=== PATIENT | female | born 1960 | race Caucasian/White ===

== ENCOUNTER 2017-04-17 14:31 | Emergency (ER) | payer OTHER ==
[~2017-04-17] VITALS: Ht 157.5 cm; Wt 54.4 kg
--- NOTE | ~2017-04-17 | EKG ---
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: [facility] : 1960 Requested By: Astrid Montero Order Number: [id number] MD: Stanislav Portillo Measurements Intervals [place] Rate: 95 P: 82 UT: 203 QRS: 18 QRSD: 96 T: 102 QT: 403 QTc: 507 Interpretive Statements Sinus rhythm Borderline prolonged UT interval Borderline repolarization abnormality Minimal ST elevation, anterior leads No previous ECG available for comparison Electronically Signed On 04-17-2017 21:28:36 EDUCATION AND TRAINING COORDINATOR by Stanislav Portillo [email or web address] <ELECTRONICALLY SIGNED> By: Stanislav Portillo MD 04/17/17 2128 1432 143 Stanislav Portillo MD /KIMBER
--- NOTE | ~2017-04-17 | EKG ---
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[employer] : 1960 Requested By: Astrid Montero Order Number: [id number] MD: Stanislav Portillo Measurements Intervals [place] Rate: 105 P: 74 MA: 186 QRS: 17 QRSD: 106 T: 99 QT: 369 QTc: 488 Interpretive Statements Sinus tachycardia Nonspecific T abnormalities, lateral leads Borderline prolonged QT interval Compared to ECG 04/17/2017 14:32:48 T-wave abnormality now present Sinus rhythm no longer present ST (T wave) deviation no longer present Electronically Signed On 04-18-2017 20:57:35 SLACK LINE YARDER by Stanislav Portillo [email or web address] <ELECTRONICALLY SIGNED> By: Stanislav Portillo MD 04/18/17 2057 10 10 Stanislav Portillo MD /EPI
[2017-04-17 14:46] LABS: HEMATOCRIT 36.3 % (37.0-47.0); HEMOGLOBIN 11.9 gm/dL (12.0-15.0); MANUAL DIFF YES; MCH 26.9 pg (26.0-34.0); MCHC 32.8 g/dL (28.0-37.0); MCV 82.2 fL (80.0-100.0); PLATELET COUNT 154 thou/uL (150-400); RBC 4.42 mil/uL (4.20-5.00); RDW 17.3 % (10.5-14.5); WBC 6.7 thou/uL (4.0-11.0)
[2017-04-17 14:47] LABS: POC CA IONIZED 5.3 mg/dL (4.5-5.3); POC CREATININE 4.1 mg/dL (0.6-1.3); POC HEMOGLOBIN 13.3 g/dL (12.0-15.0); POC POTASSIUM 3.9 mmol/L (3.5-5.1)
[2017-04-17 14:51] LABS: CALCIUM 10.8 mg/dL (8.5-10.1); CREATININE 4.1 mg/dL (0.6-1.0); POTASSIUM 3.8 mmol/L (3.5-5.1)
[2017-04-17 15:00] LABS: TROPONIN-I 0.35 ng/mL (<0.06)
[2017-04-17 15:14] LABS: ANISOCYTOSIS 1+; TOTAL CELL COUNT 100
[2017-04-17] MEDS ORDERED: ATORVASTATIN CA40 MG PO (15:48)
[2017-04-17] MEDS ORDERED: ASPIR 8181 MG PO (15:48)
[2017-04-17] MEDS ORDERED: EPOGEN10000 UNIT SUBQ (15:49)
[2017-04-17] MEDS ORDERED: SYNTHROID100 MCG PO (15:50)
[2017-04-17] MEDS ORDERED: HEPARIN 5,5000 UNIT1 SUBQ (15:50)
[2017-04-17] MEDS ORDERED: REMERON15 MG PO (15:51)
[2017-04-17] MEDS ORDERED: MIRALAX17 GM PO (15:51)
[2017-04-17] MEDS ORDERED: HYDROCODON-ACE1 EAC7 PO (15:51)
[2017-04-17] MEDS ORDERED: TYLENOL325 MG PO (15:52)
[2017-04-17] MEDS ORDERED: DEMADEX20 MG PO (15:52)
[2017-04-17] MEDS ORDERED: JUVEN PACKET1 EACH PO (15:53)
[2017-04-17] MEDS ORDERED: SENSIPAR60 MG PO (15:53)
[2017-04-17] MEDS ORDERED: CARVEDILOL12.5 MG PO (15:54)
[2017-04-17] MEDS ORDERED: LISINOPRIL20 MG PO (15:54)
[2017-04-17] MEDS ORDERED: RENAL-VITE TAB0.8 MG PO (15:55)
[2017-04-17] MEDS ORDERED: RENVELA800 MG PO (15:55)
[2017-04-17] MEDS ORDERED: VOLTAREN GEL 1100 G2 TOP (15:55)
[2017-04-17] MEDS ORDERED: NORVASC2.5 MG PO (15:56)
[2017-04-17 17:37] VITALS: BP 155/85
== END 2017-04-17 18:01 | disposition home or self-care (01) ==
LOC: ER 14:31
PROVIDERS: Emergency Medicine
DX: R07.89 Other chest pain (principal); R11.10 Vomiting, unspecified; I10 Essential (primary) hypertension; E11.9 Type 2 diabetes mellitus without complications; E03.9 Hypothyroidism, unspecified; E21.3 Hyperparathyroidism, unspecified; E78.00 Pure hypercholesterolemia, unspecified; G62.9 Polyneuropathy, unspecified

== ENCOUNTER 2017-11-24 05:38 | Inpatient (IN) | payer OTHER ==
[~2017-11-24] VITALS: Ht 157.5 cm; Wt 52.2 kg
--- NOTE | ~2017-11-24 | HC ---
[facility] [place] [address] CONSULTATION Name: ROMINA ASENCIO Room #: 456-P [facility] IN M.R.#: [id number] Admission: 11/25/17 Attend Phys: Ady Le MD Discharge: 11/30/17 Date of : 58 Report #: [id number] THIS REPORT FOR: //name// CC: Ady King [facility] DATE OF SERVICE: 11/25/2017 NEPHROLOGY CONSULTATION ATTENDING PHYSICIAN: Dr. Le. REASON FOR CONSULTATION: End-stage renal disease. HISTORY OF PRESENT ILLNESS: The patient is extremely well known to our service. A 57-year-old chronic dialysis patient, on dialysis for several years with chronic diabetes, presented for cholecystectomy after a bout of cholecystitis recently. Cholecystectomy was performed. She did well and she is seen here postoperatively. PAST MEDICAL HISTORY: Longstanding diabetes mellitus complicated by some peripheral neuropathy, failure to thrive, progressive weakness, congestive heart failure, orthostatic hypotension, recent bout of colitis. She has cardiomyopathy as well. SOCIAL HISTORY: Lives in extended care facility. No cigarettes. HOME MEDICATIONS: Include aspirin 81 mg daily, atorvastatin 40 mg daily, Procrit in the dialysis unit, levothyroxine 100 mcg daily, Remeron at bedtime, torsemide 20 mg daily, carvedilol 12.5 mg b.i.d., amlodipine 5 mg daily, metoclopramide 10 mg daily. REVIEW OF SYSTEMS: GENERAL: She is feeling reasonably well. EYES: Her vision is okay. ENT: Hearing okay, swallows okay. No mouth sores or ulcers. ENDOCRINE: Positive for diabetes and thyroid disease. RESPIRATORY: No shortness of breath, pleuritic pain, cough, or hemoptysis. CARDIAC: No chest pain, angina or swelling in the legs. GASTROINTESTINAL: No nausea, vomiting, diarrhea. GENITOURINARY: Very little urine output. NEUROLOGIC: Generalized weakness. MUSCULOSKELETAL: No arthritis. PHYSICAL EXAMINATION: GENERAL: Chronically ill-appearing patient, talks softly. [facility] [address] [place] [address] [facility] Room #: [address] [place] [address] IN M.R.#: [id number] Admission: 11/25/17 Attend Phys: Ady Le MD Discharge: 11/30/17 Date of : 58 Report #: [id number] SKIN: Unremarkable. SKELETAL: Well-developed, well-nourished. She is thin. HEENT: Extraocular movements are full. Vision intact. Mucous membranes are moist. NECK: Veins are flat. CHEST: Clear to auscultation. HEART: Regular. ABDOMEN: Soft and nontender except mild tenderness in the mid epigastrium. EXTREMITIES: Show no peripheral edema. NEUROLOGIC: Shows numbness in the feet. LABORATORY DATA: Potassium only 3.2, creatinine only 1.8, BUN is 11, hemoglobin is 13.6. ASSESSMENT AND PLAN: 1. End-stage renal disease, on dialysis for some time. We will continue with dialysis treatment today. 2. Status post cholecystectomy, doing well. 3. Longstanding diabetes mellitus. 4. Chronic debility. 5. Cardiomyopathy. <ELECTRONICALLY SIGNED> By: Raul Dale MD 12/02/17 112 112 18 Raul Dale MD /nt
--- NOTE | ~2017-11-24 | PATH ---
[facility] [address] [place] [address] PATHOLOGY RPT PROCEDURE Name: MERLENE ASENCIO Room #: 456-P ADM IN M.R.#: [id number] Admission: 11/25/17 Date of : 58 Discharge: Report #: [id number] Path Case #: [id number] [facility] Accession Number: [id number] . 01 Material submitted: . GALLBLADDER . 01 Clinical history: . Cholelithiasis, cholecystitis . 02 Diagnosis: "Gallbladder", cholecystectomy: - Chronic cholecystitis. - Cholelithiasis. (CLW:db; 11/28/2017) LBQ/11/28/2017 . 02 Electronically signed: . Bhakti Whitt MD, Pathologist NPI- [id number] . 01 Gross description: . Received in formalin labeled "Merlene Asencio, gallbladder," is a previously opened gallbladder measuring 6.9 x 6.2 x 0.8 cm in greatest dimensions. The serosal surface is smooth to shaggy and dark green in appearance. The mucosa is velvety and dark green in appearance, measuring 0.1 cm thick. No polyps or nodules are noted grossly. A viscous, dark green/black sludge is adherent to the mucosal surface containing particles of dark brown, granular material measuring up to 0.1 cm in maximum dimension. Careful inspection of the specimen and filtration of the specimen container contents reveal no further calculi. The specimen is submitted representatively in cassette A1, to include the infundibulum, body and fundus. (DAC; 11/25/2017) XDC/XDC . 02 Pathologist provided ICD-10: K80.10 . 02 CPT . 122464 Performed at: [address] [id number] MD Hansel Laguerre MD Phone: [phone] Performed at: 02 [facility] [address] [place] [address] PATHOLOGY RPT PROCEDURE Name: LUIS MSALMAMERLENE Room #: 456-P [facility] IN M.R.#: [id number] Admission: 11/25/17 Date of : 58 Discharge: Report #: [id number] Path Case #: [id number] [address] [place] [id number] MD Makayla Traylor MD Phone: [phone]
--- NOTE | ~2017-11-24 | O ---
[facility] [place] [address] OPERATIVE REPORT Name: ROMINA ASENCIO Room #: 456-P ADM IN M.R.#: [id number] Admission: 11/25/17 Attend Phys: Ady Le MD Discharge: Date of : 58 Report #: [id number] THIS REPORT FOR: //name// CC: Ady Mcpherson MD DATE OF SERVICE: 11/24/2017 PREOPERATIVE DIAGNOSES: Cholecystitis with cholelithiasis, large sludge ball in the gallbladder. POSTOPERATIVE DIAGNOSES: Cholecystitis with cholelithiasis, large sludge ball in the gallbladder. PROCEDURE: Laparoscopic cholecystectomy with cholangiogram. SURGEON: Ady Le MD ANESTHESIA: General anesthesia. BLOOD LOSS: 5 mL. FINDINGS: The cystic duct was full of sludge and small stones. Common bile duct appeared normal on operative cholangiogram. The junction of the gallbladder cystic duct was tortuous, edema identified in the gallbladder wall. DESCRIPTION OF PROCEDURE: With the patient under general anesthesia, abdomen was prepped and draped in sterile fashion. A 0.25% Marcaine was used to anesthetize the skin. A curvilinear incision was made infraumbilically about 2 cm. Fascia was then identified, grasped with hemostat. Fascia was then opened between the hemostat and then an 0 Vicryl suture was placed on the fascia edges for retraction. Veress needle was then placed through the posterior sheath and peritoneum. Abdominal cavity was insufflated with CO2 without difficulty. After creating pneumoperitoneum pressure of 15, an 11 mm trocar was placed through the posterior sheath and the peritoneum. No harm to the underlying tissue was identified. The patient's stomach was moderately distended. OG was placed by anesthesia, which decompressed it well. The patient was placed in reverse Trendelenburg position right side up. Two 5 mm trocars were placed to the right upper quadrant and a 5 mm trocar was placed in the right epigastrium. The gallbladder was pretty distended. The peritoneum over the triangle of Calot was dissected free. The lateral part of the gallbladder neck was freed. It became the common duct was not able to be visualized. The cystic duct had multiple scar bands across it and causing the cystic duct to be dilated at portions. Also, where the gallbladder joined the cystic duct is tortuous and folded on itself. The cystic duct was eventually able to be isolated. The [address] [address] OPERATIVE REPORT Name: ROMINA ASENCIO Room #: 456-P [facility] IN M.R.#: [id number] Admission: 11/25/17 Attend Phys: Ady Le MD Discharge: Date of : 58 Report #: [id number] cystic artery was also found. Clip was placed in the junction of the cystic duct to the gallbladder. The cystic duct was open. There is dense sludgy material that came out of the cystic duct. This also contained tiny stones. This was milked out pretty thoroughly. Irrigation was performed. Finally, cholangiogram catheter was placed. Initial run, I was not able to inject because the tip of the catheter was stuck up against the wall of the cystic duct. I then replaced it and was able to get it down into the more proximal part of the cystic duct. A clip was placed. Now, the contrast injection was easily performed. The patient was flattened out. The common bile duct filled out well. The cystic duct is tortuous. Common bile duct did not have any filling defect. Free spill bleach of the contrast into the duodenum identified. Common bile duct is not harmed. After the cholangiogram, the cholangiogram catheter was then removed. The cystic duct was then clipped x 2 proximally. The cystic artery was then identified. The posterior branch actually was easily deceived and clipped first and then the anterior branch was clipped and divided. Both arteries were clipped x 2 proximally, 1 distally and then divided. Gallbladder was then freed from the liver bed using cautery. Hemostasis obtained. Once the gallbladder was free, it was placed in a specimen bag and retrieved through the infraumbilical port. Gallbladder was opened off the field contained a large amount of sludge, which is quite dense. This is consistent with what was seen on her ultrasound and not a mass. No mass identified in the gallbladder. There are several stones in the gallbladder. Liver bed was checked and hemostasis was excellent. Clips were intact. No bleeding identified. Irrigation fluid was aspirated out. Trocars then removed under visualization. CO2 was evacuated. The patient tolerated the procedure well. The fascia defect infraumbilically was closed with [id number] 0 Vicryl x 2. The skin was then irrigated, closed with 5-0 PDS. Steri-Strip, Band-Aids applied. The patient was awakened and taken to the recovery room. <ELECTRONICALLY SIGNED> By: Ady Le MD 11/27/17 1059 21 18 Ady Le MD /nt
--- NOTE | ~2017-11-24 | H ---
[facility] [place] [address] HISTORY AND PHYSICAL Name: ROMINA ASENCIO Room #: 456-P ADM IN M.R.#: [id number] Admission: 11/25/17 Attend Phys: Ady Le MD Discharge: Date of : 58 Report #: [id number] THIS REPORT FOR: //name// CC: Ady Mcpherson MD DATE OF SERVICE: 11/24/2017 HISTORY OF PRESENT ILLNESS: The patient is a 57-year-old who resides at [facility] and is here for gallbladder surgery. The patient for the last several months has been having abdominal pain. She initially did not tell anybody when they started. She has been complaining of upper pain going to her back, which seems to be in between meals. She does state that food does make her sick. The patient has associated nausea, bloating and increased gas. No diarrhea. She has problem with constipation. The patient had a CT and ultrasound at the end of October and distended gallbladder with gallstones were identified. Ultrasound showed a large amount of echogenic material, which is consistent with a sludge ball. The patient is here for laparoscopic cholecystectomy. PAST MEDICAL HISTORY: The patient has end-stage kidney disease and is on dialysis; history of hypertension; diabetes; chronic heart disease, which is stable; hypothyroid; polyneuropathy; history of falling; hyperlipidemia; generalized muscle weakness. MEDICATIONS: Reglan, Remeron, Claritin, Ventolin, Zofran, hydrocodone, amlodipine, carvedilol, torsemide, aspirin, Levemir. ALLERGIES: The patient reports no allergies. PAST SURGICAL HISTORY: No past surgical history in the abdomen. FAMILY HISTORY: Noncontributory. REVIEW OF SYSTEMS: GENERAL: The patient is a chronically ill and disabled from chronic renal disease. She gets dialysis Tuesday, Tuesday and Tuesday. On exam, she is a fair historian. She does look thin. The patient is alert and oriented. HEENT: Pupils react to light. Extraocular muscles are intact. Oropharynx clear. NECK: Soft and supple, no masses. LUNGS: Clear to auscultation. HEART: Regular rate and rhythm. No murmur or gallop. ABDOMEN: She does have tenderness in right upper quadrant subcostally. I do not feel any mass. No abdominal incision identified. No guarding or rigidity. [address] [address] HISTORY AND PHYSICAL Name: ROMINA ASENCIO Room #: 456-P [facility] IN M.R.#: [id number] Admission: 11/25/17 Attend Phys: Ady Le MD Discharge: Date of : 58 Report #: [id number] The patient does not appear to be jaundiced. EXTREMITIES: No cyanosis, clubbing, or edema. IMPRESSION: The patient with abdominal pain and gallstones and a large amount of gallbladder sludge. The patient's symptoms are consistent with gallbladder disease. She is recommended to have gallbladder removed. The patient does have multiple medical problems which are all stable. The patient is recommended to proceed with laparoscopic cholecystectomy. This will be scheduled today in between her dialysis Tuesday and Tuesday. <ELECTRONICALLY SIGNED> By: Ady Le MD 11/27/17 1059 0943 1002 Ady Le MD /nt
[~2017-11-24 05:38] MED LIST: ASPIR 8181 MG PO; ATORVASTATIN CA40 MG PO; BETADINE1 EACH TOP; CARVEDILOL12.5 MG PO; CIPRO500 MG PO; CLARITIN10 MG PO; DEMADEX20 MG PO; EPOGEN10000 UNIT SUBQ; FLAGYL500 MG PO; HEPARIN 5,5000 UNIT1 SUBQ; HYDROCODON-ACE1 EAC7 PO; JUVEN PACKET1 EACH PO; LEVEMIR SUBQ; LISINOPRIL20 MG PO; MIRALAX17 GM PO; NEPRO CARB STE237 ML PO; NITROGLYCERIN0.4 MG SUBLING; NORCO 5-325 TA1 EACH PO; NORVASC2.5 MG PO; ONDANSETRON HCL4 M2 PO; REGLAN 10 MG TA10 MG PO; REMERON 30 MG T30 M1 PO; REMERON15 MG PO; RENAL-VITE TAB0.8 MG PO; RENVELA800 MG PO; SENNA-DOCUSATE1 EAC1 PO; SENSIPAR60 MG PO; SYNTHROID100 MC1 PO; SYNTHROID100 MCG PO; TYLENOL325 MG PO; VENTOLIN HFA 1818 GM INH; VOLTAREN GEL 1100 G2 TOP
[2017-11-24 13:27] LABS: HEMATOCRIT 41.6 % (37.0-47.0); HEMOGLOBIN 13.6 gm/dL (12.0-15.0); MCH 24.9 pg (26.0-34.0); MCHC 32.7 g/dL (28.0-37.0); MCV 76.2 fL (80.0-100.0); RBC 5.45 mil/uL (4.20-5.00); RDW 21.1 % (10.5-14.5); WBC 5.3 thou/uL (4.0-11.0)
[2017-11-24 13:36] LABS: CALCIUM 9.4 mg/dL (8.5-10.1); CREATININE 1.8 mg/dL (0.6-1.0); POTASSIUM 3.2 mmol/L (3.5-5.1)
[2017-11-24 13:44] LABS: ALBUMIN 2.3 g/dL (3.4-5.0); DIRECT BILIRUBIN 0.3 mg/dL (<0.1-0.3); TOTAL BILIRUBIN 0.5 mg/dL (<0.1-1.0); TOTAL PROTEIN 7.4 g/dL (6.4-8.2)
[2017-11-24 14:11] VITALS: BP 191/107
[2017-11-24 19:19] VITALS: BP 164/86
[2017-11-24 20:20] VITALS: BP 142/75
[2017-11-24 21:00] VITALS: BP 104/91
[2017-11-24 22:00] VITALS: BP 161/87
[2017-11-25 00:28] VITALS: BP 167/86
[2017-11-25 03:28] VITALS: BP 149/78
[2017-11-25 07:55] VITALS: BP 150/89
[2017-11-25 18:40] VITALS: BP 143/64
[2017-11-25 19:26] VITALS: BP 135/64
[2017-11-26 06:05] VITALS: BP 183/858
[2017-11-26 07:20] VITALS: BP 142/85
[2017-11-26 16:53] VITALS: BP 129/67
[2017-11-26 19:01] VITALS: BP 139/70
[2017-11-27 03:07] VITALS: BP 159/85
[2017-11-27 08:00] VITALS: BP 153/85
[2017-11-27 16:18] VITALS: BP 150/85
[2017-11-27 20:00] VITALS: BP 136/82
[2017-11-28 04:00] VITALS: BP 132/85
[2017-11-28 05:14] LABS: HEMATOCRIT 37.4 % (37.0-47.0); HEMOGLOBIN 12.1 gm/dL (12.0-15.0); MCH 24.9 pg (26.0-34.0); MCHC 32.3 g/dL (28.0-37.0); MCV 77.1 fL (80.0-100.0); RBC 4.85 mil/uL (4.20-5.00); RDW 21.5 % (10.5-14.5); WBC 13.6 thou/uL (4.0-11.0)
[2017-11-28 05:36] LABS: ALBUMIN 1.6 g/dL (3.4-5.0); CALCIUM 9.4 mg/dL (8.5-10.1); CREATININE 2.6 mg/dL (0.6-1.0); PHOSPHORUS 1.6 mg/dL (2.5-4.9); POTASSIUM 4.6 mmol/L (3.5-5.1)
[2017-11-28 08:00] VITALS: BP 176/93
[2017-11-28 15:52] VITALS: BP 139/76
[2017-11-28 20:00] VITALS: BP 133/71
[2017-11-29 03:19] VITALS: BP 138/78
[2017-11-29 05:24] LABS: HEMATOCRIT 36.4 % (37.0-47.0); MCH 25.1 pg (26.0-34.0); MCHC 32.9 g/dL (28.0-37.0); MCV 76.2 fL (80.0-100.0); RBC 4.77 mil/uL (4.20-5.00); RDW 21.4 % (10.5-14.5); WBC 15.2 thou/uL (4.0-11.0)
[2017-11-29 05:45] LABS: ALBUMIN 1.7 g/dL (3.4-5.0); CALCIUM 9.2 mg/dL (8.5-10.1); PHOSPHORUS 2.7 mg/dL (2.5-4.9); POTASSIUM 3.4 mmol/L (3.5-5.1)
[2017-11-29 05:48] LABS: CREATININE 1.5 mg/dL (0.6-1.0)
[2017-11-29 07:45] VITALS: BP 146/88
[2017-11-29 16:01] VITALS: BP 157/91
[2017-11-29 19:18] VITALS: BP 156/81
[2017-11-30 03:11] VITALS: BP 150/74
[2017-11-30 08:00] VITALS: BP 162/87
[2017-11-30] MEDS ORDERED: KEFLEX500 M1 PO (15:33)
[2017-11-30] MEDS ORDERED: NOVOLOG100 UNIT/1 SUBQ (15:35)
[2017-11-30 16:00] VITALS: BP 144/76
== END 2017-11-30 17:32 | DRG 417 ==
LOC: TBA 05:38 → OR 05:38 → 4W 05:38 → OR 09:49 → 4W 17:49 → OR 11-25 15:33 → 4W 11-30 17:32
PROVIDERS: Internal Medicine Nephrology; Surgery
PROC: 0FT44ZZ Resection of Gallbladder, Percutaneous Endoscopic Approach (ICD-10-PCS; principal; 2017-11-25)
PROC: BF141ZZ Fluoroscopy of Gallbladder, Bile Ducts and Pancreatic Ducts using Low Osmolar Contrast (ICD-10-PCS; principal; 2017-11-25)
DX: K80.10 Calculus of gallbladder with chronic cholecystitis without obstruction (principal); N18.6 End stage renal disease; K56.7 Ileus, unspecified; I13.2 Hypertensive heart and chronic kidney disease with heart failure and with stage 5 chronic kidney disease, or end stage renal disease; I42.9 Cardiomyopathy, unspecified; E83.39 Other disorders of phosphorus metabolism; K59.00 Constipation, unspecified; I50.9 Heart failure, unspecified; E21.3 Hyperparathyroidism, unspecified; F32.9 Major depressive disorder, single episode, unspecified; F41.9 Anxiety disorder, unspecified; E11.22 Type 2 diabetes mellitus with diabetic chronic kidney disease; E11.42 Type 2 diabetes mellitus with diabetic polyneuropathy; E03.9 Hypothyroidism, unspecified; E78.5 Hyperlipidemia, unspecified; Z99.2 Dependence on renal dialysis; Z91.81 History of falling; Z79.4 Long term (current) use of insulin; Z79.82 Long term (current) use of aspirin; Z79.899 Other long term (current) drug therapy
CPT/HCPCS: 10047; 32100; 50010; 50101; 50411; 50555; 50558; 51489; 51687; 52168; 53307; 53310; 55245; 55317; 56462; 56525; 56526; 56970; 62110; 62900; 70005

== ENCOUNTER 2018-02-15 16:48 | Inpatient (IN) | payer OTHER ==
[~2018-02-15] VITALS: Ht 157.5 cm; Wt 45.3 kg
--- NOTE | ~2018-02-15 | HC ---
[facility] [place] [address] CONSULTATION Name: ROMINA ASENCIO Room #: 426-P ADM IN M.R.#: [id number] Admission: 02/15/18 Attend Phys: Raul Dale MD Discharge: Date of : 58 Report #: [id number] THIS REPORT FOR: //name// CC: Raul Mcpherson REASON FOR CONSULTATION: End-stage renal disease. REASON FOR PRESENTATION: Constipation. HISTORY OF PRESENT ILLNESS: This is a 57-year-old with past medical history of end-stage renal disease, severe malnutrition. She is known to have coronary artery disease and all complications related to her end-stage renal disease. She dialyzes every Tuesday, Tuesday and Tuesday. She presented to the Emergency Room, reporting that she had constipation for a few weeks. This was associated with mild abdominal pain. No diarrhea. No fever or chills. No shortness of breath or chest pain. She does report lower extremity edema. No previous similar episode. Chest CT and abdominal and pelvis CT reveals severe fecal impaction. I am being consulted to manage her end-stage renal disease related issues. PAST MEDICAL HISTORY: Extensive and includes the followin. End-stage renal disease. 2. Coronary artery disease. 3. Hyperparathyroidism. 4. Anemia. 5. Hyperlipidemia. 6. Peptic ulcer disease. 7. Hypothyroidism. 8. Diabetes mellitus. 9. Hypertension. 10. Cardiomyopathy. 11. Right IJ tunneled catheter. 12. Post-laparoscopic cholecystectomy. 13. EGD. SOCIAL HISTORY: The patient resides at the [facility]. No reported drug or alcohol abuse. FAMILY HISTORY: Significant for hypertension and diabetes mellitus. MEDICATIONS: Atorvastatin, clonidine, carvedilol, amlodipine, aspirin, senna, levothyroxine. REVIEW OF SYSTEMS: GENERAL: No fever or chills. CARDIOVASCULAR: No chest pain or palpitation. [facility] [address] [place] [address] CONSULTATION Name: ROMINA ASENCIO Room #: 426-P [facility] IN [facility].#: [id number] Admission: 02/15/18 Attend Phys: Raul Dale MD Discharge: Date of : 58 Report #: [id number] PULMONARY: No cough or hemoptysis. GASTROINTESTINAL: As per the history of present illness. GENITOURINARY: Anuric. MUSCULOSKELETAL: Bilateral lower extremity edema. PHYSICAL EXAMINATION: GENERAL: Alert, oriented. VITAL SIGNS: Blood pressure is 102/62, temperature 36.8. HEAD AND NECK: No jugular venous distention. CHEST: Decreased air entry bilaterally. CARDIOVASCULAR: No rub detected. ABDOMEN: Soft, diffuse tenderness. No guarding or rigidity. LOWER EXTREMITIES: +2 edema. LABORATORY DATA: Reviewed. White blood cell count 8.5. Sodium 136, potassium is 3.2, creatinine is 1.5. CT abdomen and pelvis reviewed and this showed massive fecal impaction with possible left ovarian adnexal mass. ASSESSMENT, IMPRESSION AND PLAN: 1. End-stage renal disease. 2. Severe fecal impaction. 3. Hypokalemia. 4. Fluid overload. 5. Hypertension. 6. Diabetes mellitus. 7. Hypothyroidism. 8. Coronary artery disease. 9. We will arrange for the patient to have her usual dialysis every Tuesday, Tuesday and Tuesday. Next treatment will be tomorrow. 10. Replace potassium. 11. Resume her blood pressure medication. 12. Resume her diabetic medications. 13. Resume her thyroid medications. 14. We will defer the management of her fecal impaction to the admitting team. <ELECTRONICALLY SIGNED> By: Stefanie Baker MD 02/17/18 0808 0826 1101 Stefanie Baker MD /nt
--- NOTE | ~2018-02-15 | EKG ---
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1960 Requested By: Fernando Mcpherson Order Number: [id number] MD: Stanislav Portillo Measurements Intervals [place] Rate: 110 P: 71 [place]: 152 QRS: 29 QRSD: 105 T: 104 QT: 359 QTc: 486 Interpretive Statements Sinus tachycardia Low voltage, extremity leads RSR' in V1 or V2, probably normal variant Nonspecific T abnormalities, lateral leads Baseline wander in lead(s) V1,V6 Electronically Signed On 02-27-2018 16:59:50 CDT by Stanislav Portillo [email or web address] <ELECTRONICALLY SIGNED> By: Stanislav Portillo MD 02/27/18 1659 0745 0745 Stanislav Portillo MD /EPI
--- NOTE | ~2018-02-15 | 2DMMODE ---
[place] [address] [facility] [place] [address] 2 D/M-MODE ECHOCARDIOGRAM Name: ROMINA ASENCIO Room #: 426-P ADM IN M.R.#: [id number] Admission: 02/15/18 Attend Phys: Raul Dale MD Discharge: Date of : 58 Date of Service: 02/20/18 1113 Report #: [id number] THIS REPORT FOR: //name// APPROVED REPORT Study performed: 02/20/2018 10:18:42 EXAM: Comprehensive 2D, Doppler, and color-flow Echocardiogram Patient Location: Bedside Room #: [facility] Status: routine BSA: 1.42 HR: 99 bpm BP: 78/56 mmHg Other Information Study Quality: Adequate/Technically Difficult Technically limited study due to inability to position patient, uncooperative patient. Indications Hypotension Diabetes CAD 2D Dimensions RVDd: 22.59 mm IVSd: 12.06 (7-11mm) LVOT Diam: 20.24 (18-24mm) LVDd: 25.38 mm PWd: 12.78 (7-11mm) LVDs: 18.35 (25-40mm) Aortic Root: 25.12 mm IVC: 14.00 mm Volumes Left Atrial Volume (Systole) Single Plane 4CH: 23.79 mL Single Plane 2CH: 15.30 mL LA ESV Index: 15.00 mL/m2 Aortic Valve AoV Peak Favio.: 1.40 m/s AO Peak Gr.: 7.87 mmHg LVOT Max P.58 mmHg LVOT Max V: 1.28 m/s SABINA Vmax: 2.94 cm2 Mitral Valve [facility] [address] [place] [address] 2 D/M-MODE ECHOCARDIOGRAM Name: ROMINA ASENCIO Room #: 426-P ADM IN M.R.#: [id number] Admission: 02/15/18 Attend Phys: Raul Dale MD Discharge: Date of : 58 Date of Service: 02/20/18 1113 Report #: [id number] E/A Ratio: 0.9 MV Decel. Time: 186.49 ms MV E Max Favio.: 0.74 m/s MV A Favio.: 0.84 m/s MV PHT: 54.08 ms IVRT: 69.20 ms Pulmonary Valve PV Peak Favio.: 0.92 m/s PV Peak Gr.: 3.37 mmHg Tricuspid Valve RAP Estimate: 5.00 mmHg Left Ventricle The left ventricle is normal size. Mild concentric left ventricular hypertrophy. The left ventricular systolic function is normal. The left ventricular ejection fraction is within the normal range. LVEF is 60-65%. Transmitral Doppler flow pattern suggests impaired LV relaxation. Right Ventricle The right ventricle is normal size. The right ventricular systolic function is normal. Atria The left atrium size is normal. The right atrium size is normal. Aortic Valve The aortic valve is normal in structure. No aortic regurgitation is present. There is no aortic valvular stenosis. Mitral Valve The mitral valve is normal in structure. There is no mitral valve regurgitation noted. No evidence of mitral valve stenosis. Tricuspid Valve The tricuspid valve is normal in structure. There is no tricuspid valve regurgitation noted. Unable to assess PA pressure. Pulmonic Valve Pulmonic valve is not well visualized. Great Vessels The aortic root is normal in size. IVC is normal in size and collapses >50% with inspiration. [facility] [id number] [place] [address] 2 D/M-MODE ECHOCARDIOGRAM Name: ROMINA ASENCIO Room #: 426-P ADM IN M.R.#: [id number] Admission: 02/15/18 Attend Phys: Raul Dale MD Discharge: Date of : 58 Date of Service: 02/20/18 1113 Report #: [id number] Pericardium There is no pericardial effusion. <Conclusion> The left ventricle is normal size. Mild concentric left ventricular hypertrophy. The left ventricular systolic function is normal. Transmitral Doppler flow pattern suggests impaired LV relaxation. The right ventricle is normal size. The left atrium size is normal. There is no aortic valvular stenosis. There is no mitral valve regurgitation noted. There is no tricuspid valve regurgitation noted. <ELECTRONICALLY SIGNED> By: Rajat Velázquez MD 02/20/18 1113 1113 111 Rajat Velázquez MD /INF
--- NOTE | ~2018-02-15 | HC ---
[facility] [place] [address] CONSULTATION Name: ROMINA ASENCIO Room #: 426-P ADM IN M.R.#: [id number] Admission: 02/15/18 Attend Phys: Raul Dale MD Discharge: Date of : 58 Report #: [id number] THIS REPORT FOR: //name// CC: [facility] DATE OF SERVICE: 02/16/2018 CHIEF COMPLAINT: Sacral ulceration. HISTORY OF PRESENT ILLNESS: This is a 57-year-old white female patient with a history of nausea, vomiting, diarrhea and lower back pain. She was admitted to the hospital for further evaluation and treatment. She has chronic renal failure requiring dialysis. She makes eye contact, will not answer any questions at the bedside. She was noted to have a sacral ulceration. I have been asked to see her with regard to care of her sacral ulceration. PAST MEDICAL HISTORY: Positive for history of end-stage renal disease, requiring dialysis, hypertension, diabetes, coronary artery disease, hypothyroidism, hyperparathyroidism, dyslipidemia, peptic ulcers, polyneuropathy, muscle weakness, congestive heart failure, cardiomyopathy, chronic constipation, hepatitis C. MEDICATIONS: Include omeprazole, aspirin, MiraLax, Tylenol, Coreg, Norvasc, Zofran, Synthroid, Remeron, Claritin, Ventolin, Lipitor, Demadex, Nephrocaps, metoclopramide, Benoit, Epogen, renal vitamins, clonidine, Marinol. ALLERGIES: None. SOCIAL HISTORY: Negative for alcohol or tobacco use. FAMILY HISTORY: Unknown. REVIEW OF SYSTEMS: Unable to be obtained. The patient makes eye contact, but will not answer any questions. PHYSICAL EXAMINATION: VITAL SIGNS: At this time include pulse 88, respiratory rate 16, blood pressure of 84/51, temperature 98.1. GENERAL: This is a chronically ill-appearing, almost cachectic-appearing female patient who appears to be in minimal to no distress. HEENT: Head normocephalic. Nose and throat are clear. She has abnormal facial hair growth in a male pattern. NECK: Supple. LUNGS: Diminished. HEART: Regular rhythm. [facility] [address] [address] CONSULTATION Name: SALMA ASENCIOTTE Room #: 426-P ADM IN M.R.#: [id number] Admission: 02/15/18 Attend Phys: Raul Dale MD Discharge: Date of : 58 Report #: [id number] ABDOMEN: Soft, somewhat distended, appears to be nontender. PELVIC: Region demonstrates what appears to be some ecchymosis around the coccyx which is very prominent. She has very little soft tissue padding and she has some ulceration at the stage 2 level. Lower extremities show no evidence of breakdown. NEUROLOGIC: The patient is awake and does make eye contact. She does not really follow commands and certainly will not answer questions. LABORATORY DATA: Includes sodium 136, potassium is 3.2, chloride 100, CO2 is 26, BUN 8, creatinine 1.5, total protein 5.3, albumin is markedly low at 1.4. CLINICAL IMPRESSION: 1. Stage 2 sacral pressure ulceration. 2. Severe protein-calorie malnutrition with albumin of 1.4. 3. End-stage renal disease, requiring dialysis. 4. Nausea and vomiting. 5. Chronic constipation. RECOMMENDATIONS: At this point in time, the patient will be placed on a low air loss mattress. She will need to be turned and repositioned every 2 hours. She is not really capable of turning, repositioning herself, will need PRAFO boots for pressure prophylaxis of her heels. We will recommend a moisture barrier cream to the sacral region covered by bordered foam to be changed on a daily basis. She will need aggressive nutritional support. I do appreciate being asked to see her in consultation. <ELECTRONICALLY SIGNED> By: Evens Sage MD 02/18/18 1623 [id number] Evens Sage MD /nt
--- NOTE | ~2018-02-15 | HC ---
[facility] [address] [place] [address] CONSULTATION Name: ROMINA ASENCIO Room #: 426-P ADM IN M.R.#: [id number] Admission: 02/15/18 Attend Phys: Raul Dale MD Discharge: Date of : 58 Report #: [id number] THIS REPORT FOR: //name// CC: Raul Mcpherson DATE OF SERVICE: 02/17/2018 REFERRAL PHYSICIAN: Dr. Mcpherson. REASON FOR REFERRAL: Pleural effusions. HISTORY OF PRESENT ILLNESS: The patient is a 57-year-old white female with multiple medical problems, brought to the Emergency Room with complaints of nausea, vomiting and abdominal pain. Imaging studies showed pleural effusion. Pulmonary consultation was requested. The patient normally resides in a [facility]. She has end-stage renal disease, undergoing hemodialysis 3 times a day. She was in her usual state of health until the day prior to presentation, the patient had complained of abdominal discomfort, nausea, vomiting and pain. CT imaging of the abdomen and pelvis shows severe fecal impaction. The study also showed [id number] bilateral pleural effusions, greater in the right than the left. Currently, she is complaining of abdominal discomfort. She appears very weak and emaciated. PAST MEDICAL HISTORY: Hypertension, diabetes mellitus, end-stage renal disease, anemia due to chronic disease, coronary artery disease, undergoing stent placement, hypothyroidism, hyperparathyroidism, dyslipidemia, peptic ulcer disease, polyneuropathy with muscle weakness, cardiomyopathy with a history of chronic heart failure, depression, anxiety, chronic constipation, chronic narcotics, history of hepatitis C. ALLERGIES: None to medications. MEDICATIONS: From senior care aspirin, MiraLax, Coreg, Norvasc, Zofran, Synthroid, Remeron, Claritin, Ventolin, Lipitor, Demadex, Nephrocaps, Reglan, Cosmos 5/325 mg 1 tablet t.i.d. p.r.n., Epogen, clonidine, Marinol. FAMILY HISTORY: Noncontributory. SOCIAL HISTORY: No tobacco or alcohol use. She currently resides at [address] [address] CONSULTATION Name: SALMA ASENCIOTTE Room #: 426-P [facility] IN ..#: [id number] Admission: 02/15/18 Attend Phys: Raul Dale MD Discharge: Date of : 58 Report #: [id number] [facility]. REVIEW OF SYSTEMS: Deferred as the patient is somewhat somnolent, not able to give a good history. PHYSICAL EXAMINATION: GENERAL: She is arousable, appears quite weak, semi-somnolent, emaciated. VITAL SIGNS: Temperature is 97.7 degrees Fahrenheit, pulse is 95, respiratory rate is 18, blood pressure 100/58 mmHg, and saturating 99%. HEENT: Normocephalic, atraumatic. NECK: Supple, without any lymphadenopathy or thyromegaly. CHEST: Breath sounds are fair due to poor effort, otherwise no rales or wheezes. CARDIOVASCULAR: Normal S1, S2. No murmurs or gallop. There is no JVD. There is no carotid bruit. Pulses are 2+/4+ bilaterally. BREASTS: Exam deferred. ABDOMEN: Soft, mildly tender, moderately distended. I do not feel any masses. GENITOURINARY: Deferred. RECTAL: Deferred. EXTREMITIES: No cyanosis, clubbing, or edema. MUSCULOSKELETAL: Notable for marked muscle atrophy. LABORATORY DATA: CT of abdomen as mentioned above showing tciy-ij-[id number] bilateral pleural effusion, greater in the right than the left; massive fecal impaction is noted; uterine mass is suspected; possible right breast skin thickening is noted. Electrolytes, creatinine 1.5, BUN is 8, CO2 is 28. Liver enzymes are mildly abnormal, elevated alkaline phosphatase. WBC 8800, hemoglobin 14.0, platelets are normal. Albumin 1.1. IMPRESSION: 1. Bilateral pleural effusions in this 57-year-old white female with multiple medical problems including end-stage renal disease, profound malnutrition, emaciation. Pleural fluid is likely transudate due to volume overload. I do not think there is a complicated effusion such as empyema. 2. Severe fecal impaction, likely related to chronic narcotics with given history of chronic constipation. 3. Profound malnutrition with an albumin of 1.4 along with cachexia. 4. End-stage renal disease, undergoing hemodialysis. Due to marked muscle atrophy, creatinine is 1.5. 5. Hypertension. 6. Diabetes mellitus. 7. Coronary artery disease, undergone prior stent placement along with ischemic cardiomyopathy. 8. Hypothyroidism. 9. History of polyneuropathy with what appears to be progressive muscle weakness. [address] [address] CONSULTATION Name: ROMINA ASENCIO Room #: [facility] ADM IN M.R.#: [id number] Admission: 02/15/18 Attend Phys: Raul Dale MD Discharge: Date of : 58 Report #: [id number] 10. Anxiety and depression. 11. History of hepatitis C. RECOMMENDATIONS: We will defer thoracentesis for now as the pleural fluid appears to be transudate related to volume overload. She has history of end-stage renal disease along with cardiomyopathy. If pleural fluid does not improve or worsens, we will recommend thoracentesis. I do not think the pleural fluid is complicated at this time such as infection or malignant. Thank you for this consultation. <ELECTRONICALLY SIGNED> By: Brendon Hager MD 02/18/18 1353 [id number] 30 Brendon Hager MD /nt
[~2018-02-15 16:48] MED LIST changes: +KEFLEX500 M1 PO; +NOVOLOG100 UNIT/1 SUBQ; +PRILOSEC OTC20 MG PO
[2018-02-15 16:49] VITALS: BP 94/60
[2018-02-15 18:48] LABS: ABSOLUTE NEUTROPHILS 7.6 thou/uL (1.4-8.2); BASOPHILS 0.2 % (0.0-2.0); EOSINOPHILS 0.1 % (0.0-3.0); HEMATOCRIT 42.9 % (37.0-47.0); LYMPHOCYTES 7.1 % (24.0-44.0); MCH 26.9 pg (26.0-34.0); MCHC 32.7 g/dL (28.0-37.0); MCV 82.1 fL (80.0-100.0); MONOCYTES 6.6 % (1.0-8.0); PLATELET COUNT 136 thou/uL (150-400); RBC 5.22 mil/uL (4.20-5.00); RDW 17.9 % (10.5-14.5); WBC 8.8 thou/uL (4.0-11.0)
[2018-02-15 19:01] LABS: CALCIUM 8.2 mg/dL (8.5-10.1); CREATININE 1.2 mg/dL (0.6-1.0); POTASSIUM 3.7 mmol/L (3.5-5.1)
[2018-02-15 19:06] LABS: ALBUMIN 1.4 g/dL (3.4-5.0); DIRECT BILIRUBIN 0.6 mg/dL (<0.1-0.3); TOTAL BILIRUBIN 0.9 mg/dL (<0.1-1.0); TOTAL PROTEIN 5.3 g/dL (6.4-8.2)
[2018-02-15] MEDS ORDERED: EPOGEN10000 UNIT SUBQ (19:49)
[2018-02-15] MEDS ORDERED: RENAL VITAMIN0.8 MG PO (19:52)
[2018-02-15] MEDS ORDERED: CLONIDINE0.1 PO (19:54)
[2018-02-15] MEDS ORDERED: MARINOL5 MG PO (19:55)
[2018-02-15 22:35] VITALS: BP 124/68
[2018-02-15 23:09] VITALS: BP 104/63
[2018-02-16 06:00] VITALS: BP 102/62
[2018-02-16 07:40] VITALS: BP 100/58
[2018-02-16 07:45] LABS: HEMATOCRIT 37.7 % (37.0-47.0); HEMOGLOBIN 12.3 gm/dL (12.0-15.0); MCH 27.1 pg (26.0-34.0); MCHC 32.8 g/dL (28.0-37.0); MCV 82.5 fL (80.0-100.0); RBC 4.56 mil/uL (4.20-5.00); WBC 8.5 thou/uL (4.0-11.0)
[2018-02-16 07:56] LABS: CALCIUM 8.3 mg/dL (8.5-10.1); CREATININE 1.5 mg/dL (0.6-1.0); POTASSIUM 3.2 mmol/L (3.5-5.1)
[2018-02-16 16:00] VITALS: BP 84/51
[2018-02-16 19:23] VITALS: BP 104/62
[2018-02-17 04:13] VITALS: BP 92/57
[2018-02-17 07:00] VITALS: BP 71/43
[2018-02-17 18:21] VITALS: BP 73/45
[2018-02-17 20:00] VITALS: BP 85/50
[2018-02-18 06:00] VITALS: BP 92/52
[2018-02-18 08:00] VITALS: BP 88/57
[2018-02-18 15:00] VITALS: BP 82/50
[2018-02-18 20:00] VITALS: BP 80/47
[2018-02-18 20:28] VITALS: BP 84/50
[2018-02-19 04:30] VITALS: BP 85/52
[2018-02-19 07:12] VITALS: BP 96/60
[2018-02-19 16:28] VITALS: BP 86/56
[2018-02-19 19:16] VITALS: BP 89/50
[2018-02-20 04:42] VITALS: BP 78/56
[2018-02-20 19:24] VITALS: BP 78/44
[2018-02-21 03:20] VITALS: BP 70/47
[2018-02-21 07:08] VITALS: BP 78/50
[2018-02-21 15:48] VITALS: BP 79/49
[2018-02-21 20:24] VITALS: BP 72/47
[2018-02-22 01:08] LABS: ABSOLUTE NEUTROPHILS 8.4 thou/uL (1.4-8.2); BASOPHILS 0.1 % (0.0-2.0); EOSINOPHILS 1.5 % (0.0-3.0); HEMATOCRIT 34.8 % (37.0-47.0); HEMOGLOBIN 11.5 gm/dL (12.0-15.0); LYMPHOCYTES 7.2 % (24.0-44.0); MCH 26.5 pg (26.0-34.0); MCV 80.3 fL (80.0-100.0); MONOCYTES 4.7 % (1.0-8.0); PLATELET COUNT 50 thou/uL (150-400); POLYS 86.5 % (36.0-66.0); RBC 4.34 mil/uL (4.20-5.00); RDW 18.5 % (10.5-14.5); WBC 9.7 thou/uL (4.0-11.0)
[2018-02-22 01:30] LABS: ALBUMIN 1.3 g/dL (3.4-5.0); CALCIUM 9.2 mg/dL (8.5-10.1); CREATININE 1.8 mg/dL (0.6-1.0); POTASSIUM 3.7 mmol/L (3.5-5.1); TOTAL BILIRUBIN 2.4 mg/dL (<0.1-1.0); TOTAL PROTEIN 4.6 g/dL (6.4-8.2)
[2018-02-22 01:41] LABS: ANISOCYTOSIS 2+; SCHISTOCYTES FEW
[2018-02-22 01:42] LABS: PLATELET ESTIMATE DECREASED; POLYCHROMASIA 1+
[2018-02-22 03:41] VITALS: BP 74/50
[2018-02-22 08:07] VITALS: BP 66/58
[2018-02-22 15:45] VITALS: BP 83/50
[2018-02-22 19:09] VITALS: BP 110/58
[2018-02-23 00:20] VITALS: BP 80/46
[2018-02-23 04:42] VITALS: BP 92/59
== END 2018-02-23 15:09 | DRG 177 ==
LOC: ER 16:48 → 4E 21:32 → EROBS 21:32 → 4E 22:36
PROVIDERS: Emergency Medicine; Internal Medicine
PROC: 5A1D70Z Performance of Urinary Filtration, Intermittent, Less than 6 Hours Per Day (ICD-10-PCS; principal; 2018-02-17)
PROC: 5A1D70Z Performance of Urinary Filtration, Intermittent, Less than 6 Hours Per Day (ICD-10-PCS; 2018-02-20)
PROC: 5A1D70Z Performance of Urinary Filtration, Intermittent, Less than 6 Hours Per Day (ICD-10-PCS; 2018-02-22)
DX: J69.0 Pneumonitis due to inhalation of food and vomit (principal); N18.6 End stage renal disease; E43 Unspecified severe protein-calorie malnutrition; I13.2 Hypertensive heart and chronic kidney disease with heart failure and with stage 5 chronic kidney disease, or end stage renal disease; I42.9 Cardiomyopathy, unspecified; J90 Pleural effusion, not elsewhere classified; Z68.1 Body mass index [BMI] 19.9 or less, adult; Z51.5 Encounter for palliative care; J18.9 Pneumonia, unspecified organism; K56.41 Fecal impaction; E87.6 Hypokalemia; L89.152 Pressure ulcer of sacral region, stage 2; E11.22 Type 2 diabetes mellitus with diabetic chronic kidney disease; E03.9 Hypothyroidism, unspecified; E78.5 Hyperlipidemia, unspecified; E11.42 Type 2 diabetes mellitus with diabetic polyneuropathy; F32.9 Major depressive disorder, single episode, unspecified; F41.9 Anxiety disorder, unspecified; I25.10 Atherosclerotic heart disease of native coronary artery without angina pectoris; E87.70 Fluid overload, unspecified; E21.3 Hyperparathyroidism, unspecified; R19.00 Intra-abdominal and pelvic swelling, mass and lump, unspecified site; I95.9 Hypotension, unspecified; E11.622 Type 2 diabetes mellitus with other skin ulcer; D25.9 Leiomyoma of uterus, unspecified; N85.9 Noninflammatory disorder of uterus, unspecified; Z95.5 Presence of coronary angioplasty implant and graft; Z86.19 Personal history of other infectious and parasitic diseases; Z90.49 Acquired absence of other specified parts of digestive tract; Z82.49 Family history of ischemic heart disease and other diseases of the circulatory system; Z83.3 Family history of diabetes mellitus; Z79.82 Long term (current) use of aspirin; Z79.899 Other long term (current) drug therapy; Z87.891 Personal history of nicotine dependence; Z66 Do not resuscitate
CPT/HCPCS: 10084; 32100